=== PATIENT | female | born 1965 | race Caucasian/White ===

== ENCOUNTER 2017-04-06 09:46 | Inpatient (IN) | payer OTHER ==
[~2017-04-06] VITALS: Ht 175.3 cm; Wt 101.0 kg
[2017-04-06] MEDS ORDERED: ACETAMINOPHEN 500 MG TABLET PO ONE (10:00)
[2017-04-06] MEDS ORDERED: CEFTRIAXONE 1,000 MG in SODIUM CHLORIDE 0.9% 50 ML IVPB ONE (10:00)
[2017-04-06] MEDS ORDERED: SODIUM CHLORIDE FLUSH 10ML SYR IVF ONE (10:00)
[2017-04-06] MEDS ORDERED: CEFTRIAXONE PMX 1GM/50ML 50 ML ONE (10:23)
[2017-04-06] MEDS ORDERED: SODIUM CHLORIDE 0.9% 1,000ML IVBOLUS ONE (10:30)
[2017-04-06 10:58] LABS: BLOOD UREA NITROGEN 15 mg/dL (7-18)
[2017-04-06] MEDS ORDERED: PLEASE ENTER ALLERGIES MC SCH ×2 (11:00)
[2017-04-06 11:16] LABS: DIFF TOTAL CELLS COUNTED 100 CELL DIFF
[2017-04-06 11:18] LABS: VERIFY COUNTS? YES
[2017-04-06] MEDS ORDERED: ACETAMINOPHEN 500 MG TABLET ONE (11:53)
[2017-04-06] MEDS ORDERED: GABA-827 PO (12:22)
[2017-04-06] MEDS ORDERED: FOLI-17 PO (12:22)
[2017-04-06] MEDS ORDERED: ALEN70TA5 PO (12:22)
[2017-04-06] MEDS ORDERED: FLUO20TA25 PO (12:22)
[2017-04-06] MEDS ORDERED: HYDR200T PO (12:22)
[2017-04-06] MEDS ORDERED: FERR324T5 PO (12:22)
[2017-04-06] MEDS ORDERED: VIT D3 PO (12:22)
[2017-04-06] MEDS ORDERED: FURO40TA6 PO (12:22)
[2017-04-06] MEDS ORDERED: MORP15TA3 PO (12:22)
[2017-04-06] MEDS ORDERED: [UNRECOGNIZED DRUG - OTHER] PO (12:22)
[2017-04-06] MEDS ORDERED: SODI650T PO (12:22)
[2017-04-06] MEDS ORDERED: PANT40TA5 PO (12:22)
[2017-04-06] MEDS ORDERED: PRED5TAB PO (12:22)
[2017-04-06] MEDS ORDERED: HYDROcodone/APAP 5/325 TABLET PO ONE (12:30)
[2017-04-06] MEDS ORDERED: KETOROLAC 30 MG/1 ML IM ONE (12:30)
[2017-04-06] MEDS ORDERED: DIAZEPAM 5 MG TABLET PO ONE (12:30)
[2017-04-06] MEDS ORDERED: SODIUM CHLORIDE 0.9% 1,000 ML IV SCH (12:57)
[2017-04-06] MEDS ORDERED: DOCUSATE 100 MG CAPSULE PO PRN (13:00)
[2017-04-06] MEDS ORDERED: VANCOMYCIN PER PHARMACY MC PRN (13:00)
[2017-04-06] MEDS ORDERED: BISACODYL 10 MG SUPP PR PRN (13:00)
[2017-04-06] MEDS ORDERED: ACETAMINOPHEN 325 MG TABLET PO PRN (13:00)
[2017-04-06] MEDS ORDERED: ONDANSETRON 2MG/ML, 2ML IVPB PRN (13:00)
[2017-04-06] MEDS ORDERED: PHARMACY MAY ADJ FOR RENAL FX MC PRN (13:00)
[2017-04-06] MEDS ORDERED: CEFTAZIDIME 1,000 MG in SODIUM CHLORIDE 0.9% 50 ML IV SCH (13:00)
[2017-04-06 13:44] VITALS: BP 103/67
[2017-04-06] MEDS: [UNRECOGNIZED DRUG - REMARK] MC SCH ×2 (14:00→22:00)
[2017-04-06 14:26] VITALS: BP 103/67
[2017-04-06] MEDS ORDERED: ALBUTEROL/IPRATROPIUM 2.5MG/0.5MG, 3 ML NPPB PRN (14:30)
[2017-04-06] MEDS: GUAIFENESIN 200 MG TABLET PO SCH ×3 (14:48→20:18)
[2017-04-06] MEDS: ENOXAPARIN 40 MG/0.4 ML SQ SCH (14:48)
[2017-04-06] MEDS ORDERED: ALBUTEROL/IPRATROPIUM 2.5MG/0.5MG, 3 ML NPPB SCH (15:00)
[2017-04-06] MEDS ORDERED: GABAPENTIN 300 MG CAPSULE PO SCH (16:00)
[2017-04-06] MEDS: LACTOBACILLUS CHEW TABLET PO SCH ×2 (16:33→20:18)
[2017-04-06 19:23] VITALS: BP 102/68
[2017-04-06] MEDS: HYDROXYCHLOROQUINE 200 MG TABLET PO SCH ×2 (19:55→20:18)
[2017-04-06] MEDS: SODIUM BICARBONATE 650 MG TABLET PO SCH ×2 (19:56→20:18)
[2017-04-06] MEDS: GABAPENTIN 300 MG CAPSULE PO SCH (20:19)
[2017-04-06] MEDS ORDERED: FUROSEMIDE 40 MG TABLET PO SCH (21:00)
[2017-04-06] MEDS: ALBUTEROL/IPRATROPIUM 2.5MG/0.5MG, 3 ML NPPB SCH (21:57)
[2017-04-06] MEDS: SODIUM CHLORIDE 0.9% 1,000 ML IV SCH (22:05)
[2017-04-06] MEDS: SODIUM CHLORIDE 0.9% IV SCH (22:51)
[2017-04-06] MEDS: CEFTAZIDIME IV SCH (22:51)
[2017-04-06 23:50] LABS: RAPID INFLUENZA A Negative (Negative); RAPID INFLUENZA B Negative (Negative)
[2017-04-07 02:45] VITALS: BP 107/66
[2017-04-07] MEDS: GUAIFENESIN 200 MG TABLET PO SCH ×4 (05:15→19:56)
[2017-04-07] MEDS: [UNRECOGNIZED DRUG - REMARK] MC SCH ×3 (05:15→19:56)
[2017-04-07] MEDS: LACTOBACILLUS CHEW TABLET PO SCH ×4 (05:15→19:56)
[2017-04-07 06:03] LABS: BLOOD UREA NITROGEN 11 mg/dL (7-18)
[2017-04-07] MEDS ORDERED: ALENDRONATE 70 MG TABLET PO SCH (06:30)
[2017-04-07 06:45] LABS: DIFF TOTAL CELLS COUNTED 100 CELL DIFF
[2017-04-07 06:55] LABS: VERIFY COUNTS? YES
[2017-04-07 07:26] VITALS: BP 119/74
[2017-04-07] MEDS: SODIUM CHLORIDE 0.9% 1,000 ML IV SCH ×2 (07:55→17:41)
[2017-04-07] MEDS: SODIUM CHLORIDE 0.9% IV SCH ×3 (07:55→23:43)
[2017-04-07] MEDS: CEFTAZIDIME IV SCH ×3 (07:55→23:43)
[2017-04-07] MEDS: FLUOXETINE 20 MG CAPSULE PO SCH (07:57)
[2017-04-07] MEDS: SODIUM BICARBONATE 650 MG TABLET PO SCH ×2 (07:57→19:56)
[2017-04-07] MEDS: CHOLECALCIFEROL 1,000 UNIT TABLET PO SCH (07:57)
[2017-04-07] MEDS: PANTOPROZOLE 40MG TABLET PO SCH ×2 (07:57→19:56)
[2017-04-07] MEDS: FOLIC ACID 1 MG TABLET PO SCH (07:58)
[2017-04-07] MEDS: FUROSEMIDE 40 MG TABLET PO SCH (07:58)
[2017-04-07] MEDS: HYDROXYCHLOROQUINE 200 MG TABLET PO SCH ×2 (07:58→19:56)
[2017-04-07] MEDS: GABAPENTIN 300 MG CAPSULE PO SCH ×3 (07:58→19:55)
[2017-04-07] MEDS ORDERED: PANTOPROZOLE 40MG TABLET PO SCH (09:00)
[2017-04-07] MEDS ORDERED: HYDROXYCHLOROQUINE 200 MG TABLET PO SCH (09:00)
[2017-04-07] MEDS ORDERED: SODIUM BICARBONATE 650 MG TABLET PO SCH (09:00)
[2017-04-07] MEDS ORDERED: FERROUS SULFATE 325 MG TABLET PO SCH (09:00)
[2017-04-07] MEDS: ALBUTEROL/IPRATROPIUM 2.5MG/0.5MG, 3 ML NPPB SCH ×3 (10:30→19:14)
[2017-04-07] MEDS ORDERED: SODIUM CHLORIDE 0.9% 1,000 ML IV SCH (12:57)
[2017-04-07 13:25] VITALS: BP 103/68
[2017-04-07] MEDS ORDERED: KETOROLAC 30 MG/1 ML IVPush PRN (14:00)
[2017-04-07] MEDS: ENOXAPARIN 40 MG/0.4 ML SQ SCH (15:30)
[2017-04-07] MEDS: POTASSIUM CHLORIDE 10 MEQ TABLET.ER PO SCH (17:41)
[2017-04-07 19:24] VITALS: BP 122/66
[2017-04-07] MEDS: METHOCARBAMOL 500 MG TABLET PO PRN (19:56)
[2017-04-08] MEDS: METHOCARBAMOL 500 MG TABLET PO PRN (02:09)
[2017-04-08 02:37] VITALS: BP 110/71
[2017-04-08] MEDS: GUAIFENESIN 200 MG TABLET PO SCH ×4 (04:57→21:36)
[2017-04-08] MEDS: LACTOBACILLUS CHEW TABLET PO SCH ×4 (04:57→21:35)
[2017-04-08] MEDS: [UNRECOGNIZED DRUG - REMARK] MC SCH ×3 (04:57→22:00)
[2017-04-08] MEDS: SODIUM CHLORIDE 0.9% 1,000 ML IV SCH ×2 (04:57→15:15)
[2017-04-08 06:05] LABS: BLOOD UREA NITROGEN 9 mg/dL (7-18)
[2017-04-08 06:16] LABS: DIFF TOTAL CELLS COUNTED 100 CELL DIFF
[2017-04-08 06:17] LABS: VERIFY COUNTS? YES
[2017-04-08 06:18] LABS: POLYCHROMASIA 1+
[2017-04-08 06:20] LABS: ANISOCYTOSIS 1+
[2017-04-08 07:42] VITALS: BP 108/73
[2017-04-08] MEDS: SODIUM CHLORIDE 0.9% IV SCH ×2 (07:49→15:15)
[2017-04-08] MEDS: FUROSEMIDE 40 MG TABLET PO SCH (07:49)
[2017-04-08] MEDS: CEFTAZIDIME IV SCH ×2 (07:49→15:15)
[2017-04-08] MEDS: HYDROXYCHLOROQUINE 200 MG TABLET PO SCH ×2 (07:49→21:36)
[2017-04-08] MEDS: POTASSIUM CHLORIDE 10 MEQ TABLET.ER PO SCH ×2 (07:49→17:00)
[2017-04-08] MEDS: FOLIC ACID 1 MG TABLET PO SCH (07:49)
[2017-04-08] MEDS: GABAPENTIN 300 MG CAPSULE PO SCH ×3 (07:49→21:36)
[2017-04-08] MEDS: PANTOPROZOLE 40MG TABLET PO SCH ×2 (07:50→21:37)
[2017-04-08] MEDS: FLUOXETINE 20 MG CAPSULE PO SCH (07:50)
[2017-04-08] MEDS: CHOLECALCIFEROL 1,000 UNIT TABLET PO SCH (07:50)
[2017-04-08] MEDS: SODIUM BICARBONATE 650 MG TABLET PO SCH ×2 (07:50→21:37)
[2017-04-08] MEDS: ALBUTEROL/IPRATROPIUM 2.5MG/0.5MG, 3 ML NPPB SCH (09:40)
[2017-04-08 14:07] VITALS: BP 112/75
[2017-04-08] MEDS: ENOXAPARIN 40 MG/0.4 ML SQ SCH (15:15)
[2017-04-08] MEDS ORDERED: PIPERACILLIN/TAZO 3.375 GM in SODIUM CHLORIDE 0.9% 50 ML IV SCH (15:30)
[2017-04-08] MEDS ORDERED: PHARMACOKINETIC MONITORING MC PRN (17:00)
[2017-04-08] MEDS: VANCOMYCIN 1,800 MG in SODIUM CHLORIDE 0.9% 250 ML IV SCH (18:19)
[2017-04-08 18:41] VITALS: BP 124/75
[2017-04-08] MEDS: PIPERACILLIN/TAZO 3.375 GM in SODIUM CHLORIDE 0.9% 100 ML IV SCH (21:58)
[2017-04-09 01:57] VITALS: BP 119/77
[2017-04-09] MEDS: PIPERACILLIN/TAZO 3.375 GM in SODIUM CHLORIDE 0.9% 100 ML IV SCH ×4 (03:33→21:15)
[2017-04-09] MEDS: SODIUM CHLORIDE 0.9% 1,000 ML IV SCH ×2 (03:33→14:18)
[2017-04-09] MEDS: VANCOMYCIN 1,800 MG in SODIUM CHLORIDE 0.9% 250 ML IV SCH ×2 (04:48→18:03)
[2017-04-09] MEDS: [UNRECOGNIZED DRUG - REMARK] MC SCH ×2 (04:54→14:00)
[2017-04-09 04:55] LABS: BLOOD UREA NITROGEN 11 mg/dL (7-18)
[2017-04-09] MEDS: LACTOBACILLUS CHEW TABLET PO SCH ×4 (05:39→21:15)
[2017-04-09] MEDS: GUAIFENESIN 200 MG TABLET PO SCH ×4 (05:39→21:15)
[2017-04-09 07:44] VITALS: BP 114/67
[2017-04-09] MEDS ORDERED: KETOROLAC 30 MG/1 ML IVPush PRN (08:00)
[2017-04-09] MEDS: POTASSIUM CHLORIDE 10 MEQ TABLET.ER PO SCH ×2 (08:00→17:00)
[2017-04-09] MEDS: PANTOPROZOLE 40MG TABLET PO SCH ×2 (08:50→21:15)
[2017-04-09] MEDS: SODIUM BICARBONATE 650 MG TABLET PO SCH ×2 (08:50→21:15)
[2017-04-09] MEDS: CHOLECALCIFEROL 1,000 UNIT TABLET PO SCH (08:50)
[2017-04-09] MEDS: HYDROXYCHLOROQUINE 200 MG TABLET PO SCH ×2 (08:50→21:15)
[2017-04-09] MEDS: FLUOXETINE 20 MG CAPSULE PO SCH (08:50)
[2017-04-09] MEDS: FOLIC ACID 1 MG TABLET PO SCH (08:51)
[2017-04-09] MEDS: FUROSEMIDE 40 MG TABLET PO SCH (08:51)
[2017-04-09] MEDS: GABAPENTIN 300 MG CAPSULE PO SCH ×3 (08:51→21:14)
[2017-04-09 15:10] VITALS: BP 109/70
[2017-04-09] MEDS: ENOXAPARIN 40 MG/0.4 ML SQ SCH (17:01)
[2017-04-09 19:25] VITALS: BP 112/78
[2017-04-09] MEDS: FAMOTIDINE 20 MG TABLET PO SCH (23:54)
[2017-04-09] MEDS: DIPHENHYDRAMINE 25 MG CAPSULE PO PRN (23:54)
[2017-04-10 02:33] VITALS: BP 99/67
[2017-04-10] MEDS: SODIUM CHLORIDE 0.9% 1,000 ML IV SCH ×4 (02:56→22:30)
[2017-04-10] MEDS: PIPERACILLIN/TAZO 3.375 GM in SODIUM CHLORIDE 0.9% 100 ML IV SCH ×4 (03:53→21:45)
[2017-04-10] MEDS: VANCOMYCIN 1,800 MG in SODIUM CHLORIDE 0.9% 250 ML IV SCH ×3 (04:55→17:00)
[2017-04-10] MEDS: LACTOBACILLUS CHEW TABLET PO SCH ×4 (06:05→21:45)
[2017-04-10] MEDS: GUAIFENESIN 200 MG TABLET PO SCH ×4 (06:05→21:45)
[2017-04-10] MEDS: POTASSIUM CHLORIDE 10 MEQ TABLET.ER PO SCH ×4 (08:00→17:00)
[2017-04-10] MEDS: SODIUM BICARBONATE 650 MG TABLET PO SCH ×2 (08:25→21:45)
[2017-04-10] MEDS: FUROSEMIDE 40 MG TABLET PO SCH (08:25)
[2017-04-10] MEDS: FLUOXETINE 20 MG CAPSULE PO SCH (08:25)
[2017-04-10] MEDS: HYDROXYCHLOROQUINE 200 MG TABLET PO SCH ×2 (08:25→21:45)
[2017-04-10] MEDS: GABAPENTIN 300 MG CAPSULE PO SCH ×3 (08:25→21:45)
[2017-04-10] MEDS: CHOLECALCIFEROL 1,000 UNIT TABLET PO SCH (08:25)
[2017-04-10] MEDS: PANTOPROZOLE 40MG TABLET PO SCH ×2 (08:25→21:45)
[2017-04-10] MEDS: FOLIC ACID 1 MG TABLET PO SCH (08:25)
[2017-04-10] MEDS: FAMOTIDINE 20 MG TABLET PO SCH ×2 (09:00→21:45)
[2017-04-10] MEDS: ENOXAPARIN 40 MG/0.4 ML SQ SCH (17:00)
[2017-04-11] MEDS: DIPHENHYDRAMINE 25 MG CAPSULE PO PRN (02:00)
[2017-04-11] MEDS: PIPERACILLIN/TAZO 3.375 GM in SODIUM CHLORIDE 0.9% 100 ML IV SCH ×2 (03:30→09:30)
[2017-04-11] MEDS: VANCOMYCIN 1,800 MG in SODIUM CHLORIDE 0.9% 250 ML IV SCH (05:00)
[2017-04-11] MEDS: GUAIFENESIN 200 MG TABLET PO SCH ×2 (06:00→12:00)
[2017-04-11] MEDS: LACTOBACILLUS CHEW TABLET PO SCH ×3 (06:00→21:00)
[2017-04-11] MEDS: FUROSEMIDE 40 MG TABLET PO SCH (08:30)
[2017-04-11] MEDS: FOLIC ACID 1 MG TABLET PO SCH (08:30)
[2017-04-11] MEDS: SODIUM CHLORIDE 0.9% 1,000 ML IV SCH (08:30)
[2017-04-11] MEDS: FAMOTIDINE 20 MG TABLET PO SCH (09:00)
[2017-04-11] MEDS: PANTOPROZOLE 40MG TABLET PO SCH ×2 (09:30→21:45)
[2017-04-11] MEDS: CHOLECALCIFEROL 1,000 UNIT TABLET PO SCH (09:30)
[2017-04-11] MEDS: GABAPENTIN 300 MG CAPSULE PO SCH (09:30)
[2017-04-11] MEDS: SODIUM BICARBONATE 650 MG TABLET PO SCH (09:30)
[2017-04-11] MEDS: HYDROXYCHLOROQUINE 200 MG TABLET PO SCH (09:30)
[2017-04-11] MEDS: FLUOXETINE 20 MG CAPSULE PO SCH ×2 (09:30→10:40)
[2017-04-11] MEDS: POTASSIUM CHLORIDE 10 MEQ TABLET.ER PO SCH (09:30)
[2017-04-11] MEDS ORDERED: GUAI600T53 PO (14:13)
[2017-04-11] MEDS ORDERED: AZIT500T PO (14:13)
[2017-04-11] MEDS ORDERED: CEFD300C37 PO (14:13)
[2017-04-11] MEDS ORDERED: LACT1CAP24 PO (14:14)
== END 2017-04-11 16:00 | disposition home or self-care (01) | DRG 871 ==
LOC: ED 10:55 → EDIP 11:54 → 3NE 13:08 → DCLOUNGE 04-11 15:53
PROVIDERS: ADMIT Internal Medicine; ATTEND Internal Medicine
DX: A41.9 Sepsis, unspecified organism (principal); J15.9 Unspecified bacterial pneumonia; J96.01 Acute respiratory failure with hypoxia; E43 Unspecified severe protein-calorie malnutrition; F11.20 Opioid dependence, uncomplicated; R65.20 Severe sepsis without septic shock; G89.29 Other chronic pain; K21.0 Gastro-esophageal reflux disease with esophagitis; D89.9 Disorder involving the immune mechanism, unspecified; K22.4 Dyskinesia of esophagus; M06.9 Rheumatoid arthritis, unspecified; M34.9 Systemic sclerosis, unspecified; M81.0 Age-related osteoporosis without current pathological fracture; Z80.8 Family history of malignant neoplasm of other organs or systems; Z85.820 Personal history of malignant melanoma of skin; Z86.19 Personal history of other infectious and parasitic diseases; Z88.0 Allergy status to penicillin; Z79.52 Long term (current) use of systemic steroids; Z68.32 Body mass index [BMI] 32.0-32.9, adult; Z88.1 Allergy status to other antibiotic agents; Z88.2 Allergy status to sulfonamides; F32.9 Major depressive disorder, single episode, unspecified
CPT/HCPCS: 36415; 71010; 80048; 80202; 81003; 82040; 83605; 84145; 85025; 87040; 87324; 87400; 93005; 93306; 94640; 96365; J0696; J0713; J1650; J2543; J3370; J7620; J7030; J7050; J7512; Q0163